=== PATIENT | male | born 1980 | race Caucasian/White ===

== ENCOUNTER 2018-09-07 12:02 | Emergency (ER) | payer MEDICAID ==
[~2018-09-07] VITALS: Ht 165.1 cm; Wt 67.2 kg
[2018-09-07 12:05] VITALS: BP 140/89; PULSE 75; RESP 20; Ht 165.1 cm; Wt 67.2 kg
[2018-09-07] MEDS ORDERED: KETOROLAC 60 MG INJ IM STA (13:33)
[2018-09-07] MEDS ORDERED: IBUP-1542 PO (14:01)
--- NOTE | 2018-09-07 14:09 | ERD ---
ER Documentation Chief Complaint Chief Complaint right shoulder pain since yesterday HPI 38-year-old male patient with no significant past medical history presents the ED complaining of right shoulder pain that started yesterday. Patient rates his pain a 9 out of 10. Describes it as sharp. Patient reports that it feels full in the inner right shoulder and is worse with breathing. States that this happened about 2 days ago while he was sleeping. Reports he has been taking Tylenol without any relief. Denies any chest pain, dyspnea on exertion, orthopnea, shortness of breath, fever, chills, nausea, vomiting, diarrhea, neck stiffness. ROS All systems reviewed and are negative except as per history of present illness. Medications Home Meds Active Scripts Ibuprofen* (Motrin*) 600 Mg Tab, 600 MG PO Q6, #30 TAB Prov:PAWEL PENNY PA-C 09/07/18 Allergies Allergies: Coded Allergies: No Known Allergy (Unverified , 09/07/18) PMhx/Soc Medical and Surgical Hx: pt denies Medical Hx, pt denies Surgical Hx History of Surgery: No Anesthesia Reaction: No Hx Neurological Disorder: No Hx Respiratory Disorders: No Hx Cardiac Disorders: No Hx Psychiatric Problems: No Hx Miscellaneous Medical Probl: No Hx Alcohol Use: No Hx Substance Use: No Hx Tobacco Use: No Smoking Status: Never smoker Physical Exam Vitals Vital Signs Date Temp Pulse Resp B/P (MAP) Pulse Ox O2 O2 Flow FiO2 Time Delivery Rate 09/07/18 97.9 75 20 140/89 99 12:05 (106) Physical Exam Const: [id number], well-nourished. In no acute distress. Head: Atraumatic, normocephalic Eyes: Normal Conjunctiva without injection ENT: Normal external ear, nose and mouth. Neck: Full range of motion. No meningismus. Resp: Clear to auscultation bilaterally. No wheezing, rhonchi, rales, or crackles. No accessory muscle use. No retractions. Cardio: Regular rate and rhythm, no murmurs Skin: No petechiae or rashes Back: No midline tenderness. No CVA tenderness. Ext: No cyanosis, or edema. Cap refill less than 2 seconds. Distal pulses intact bilaterally. Tenderness palpation of the anterior glenoid. Full range of motion with flexion, extension, internal and external rotation of bilateral shoulders. Neur: Awake and alert. Normal gait and coordination. Muscle strength 5/5. Sensation intact bilaterally. Psych: Normal Mood and Affect Results 24 hrs Current Medications Medications Dose Sig/Jignesh Start Time Status Last (Trade) Ordered Route PRN Stop Time Admin Dose Reason Admin Ketorolac 60 mg ONCE STAT 09/07/18 DC 09/07/18 Tromethamine IM 13:33 13:37 (Toradol) 09/07/18 13:34 Procedures/MDM 38-year-old male patient with no significant past medical history presents to the ED complaining of right shoulder pain. Patient is afebrile and nontoxic-appearing. Patient's blood pressure is 140/89. Blood Pressure Assessment: Patient's blood pressure was elevated (>120/80) but appears stable without evidence of hypertension emergency or urgency. The patient was counseled about the risks of hypertension and urged to pursue outpatient monitoring and therapy within a week with their primary care physician. Low suspicion for acute myocardial infarction, pneumothorax, pericarditis, myocarditis, endocarditis, pneumonia, cardiac tamponade, pulmonary embolism, pleural effusion, AAA, aortic dissection, Boerhaave's syndrome, cardiac dysrhythmias,meningitis, intracranial bleed, seizure, stroke, TIA or other emergent conditions. Patient's extremity symptoms have stabilized while they have been evaluated in the department and are appropriate for outpatient follow up. No evidence of fractures, dislocations, compartment syndrome, neurologic injury, vascular injury, open joint, open fracture, tendon laceration, septic arthritis, osteomyelitis, DVT, foreign body, or other emergent conditions. Diagnosis: Shoulder Pain Discharge medications: Ibuprofen Follow up with primary care physician in 1-2 days. Instructed patient to return to the ED sooner for any worsening symptoms. Patient's questions were answered. Patient is hemodynamically stable. Patient understood and agreed with discharge plan. Patient discharged stable. Disclaimer: Inadvertent spelling and grammatical errors are likely due to EHR/dictation software use and do not reflect on the overall quality of patient care. Also, please note that the electronic time recorded on this note does not necessarily reflect the actual time of the patient encounter. Departure Diagnosis: Primary Impression: Shoulder pain Chronicity: acute Laterality: right Qualified Codes: M25.511 - Pain in right shoulder Condition: Stable Patient Instructions: Shoulder Pain (Uncertain Cause) Referrals: COMM[facility]ITY [facility] YOU HAVE RECEIVED A MEDICAL SCREENING EXAM AND THE RESULTS INDICATE THAT YOU DO NOT HAVE A CONDITION THAT REQUIRES URGENT TREATMENT IN THE EMERGENCY DEPARTMENT. FURTHER EVALUATION AND TREATMENT OF YOUR CONDITION CAN WAIT UNTIL YOU ARE SEEN IN YOUR DOCTORS OFFICE WITHIN THE NEXT 1-2 DAYS. IT IS YOUR RESPONSIBILITY TO MAKE AN APPOINTMENT FOR FOLOW-UP CARE. IF YOU HAVE A PRIMARY DOCTOR --you should call your primary doctor and schedule an appointment IF YOU DO NOT HAVE A PRIMARY DOCTOR YOU CAN CALL OUR PHYSICIAN REFERRAL HOTLINE AT IF YOU CAN NOT AFFORD TO SEE A PHYSICIAN YOU CAN CHOSE FROM THE FOLLOWING [facility] [address] [facility]. [facility] [address] [facility] [address] [facility] [facility] [address] [facility]. [facility] [address] [facility]. [facility] [address] [facility]. [facility] YOU HAVE RECEIVED A MEDICAL SCREENING EXAM AND THE RESULTS INDICATE THAT YOU DO NOT HAVE A CONDITION THAT REQUIRES URGENT TREATMENT IN THE EMERGENCY DEPARTMENT. FURTHER EVALUATION AND TREATMENT OF YOUR CONDITION CAN WAIT UNTIL YOU ARE SEEN IN YOUR DOCTORS OFFICE WITHIN THE NEXT 1-2 DAYS. IT IS YOUR RESPONSIBILITY TO MAKE AN APPOINTMENT FOR FOLOW-UP CARE. IF YOU HAVE A PRIMARY DOCTOR --you should call your primary doctor and schedule and appointment IF YOU DO NOT HAVE A PRIMARY DOCTOR YOU CAN CALL OUR PHYSICIAN REFERRAL HOTLINE AT . IF YOU CAN NOT AFFORD TO SEE A PHYSICIAN YOU CAN CHOSE FROM THE FOLLOWING [facility] INSTITUTIONS: [facility] [address] [place] [address] [facility] [address] [place] [address] [facility] [address] [place] [address] [facility] Additional Instructions: Call your primary care doctor TOMORROW for an appointment during the next 2-3 days.See the doctor sooner or return here if your condition worsens before your appointment time. PAWEL PENNY PA-C Sep 07, 2018 14:09
== END 2018-09-07 14:05 | disposition home or self-care (01) ==
LOC: FTE 12:02
DX: M25.511 Pain in right shoulder (principal)
CPT/HCPCS: 71045; 73030; 96372; J1885; Z7502